=== PATIENT | male | born 1960 | race Caucasian/White ===

== ENCOUNTER → 2016-10-24 | Outpatient (CLI) | payer BC ==
[~2016-10-24] MED LIST: GADAVIST IV PRN
--- NOTE | 2016-10-24 16:28 | DIAGNOSTIC IMAGING REPORT ---
MRI OF THE BRAIN WITHOUT AND WITH IV CONTRAST CLINICAL HISTORY: HEADACHES, LYME DISEASE, MUSCLE WEAKNESS COMPARISON STUDY: No previous studies for comparison. TECHNIQUE: Utilizing a 1.5 Andra magnet and dedicated coil, multiplanar, multiecho imaging of the brain was performed pre and postcontrast administration. IV administration of 8.5 mL of Gadavist contrast was uneventful. FINDINGS: Diffusion-weighted images are unremarkable. Signal characteristics of the cerebellar as well as cerebral hemispheres are within normal limits. Ventricular system is midline. Internal and or canals are symmetric. There is no evidence for abnormal postcontrast enhancement. IMPRESSION: Normal study. Electronically signed by: Hossein Wetzel M.D. 10/24/2016 4:27 PM Dictated Date/Time: 10/24/2016 4:24 PM
== END | disposition home or self-care (01) ==
LOC: C.MRI 15:39
PROVIDERS: ATTEND Family Medicine
DX: A69.20 Lyme disease, unspecified (principal); E06.3 Autoimmune thyroiditis; R51 Headache; M62.81 Muscle weakness (generalized)

== ENCOUNTER → 2017-01-15 | Outpatient (CLI) | payer BC | END | disposition home or self-care (01) | LOC: C.LAB 19:04 | PROVIDERS: ATTEND Family Medicine | DX: G72.3 Periodic paralysis (principal); M62.89 Other specified disorders of muscle; R74.8 Abnormal levels of other serum enzymes ==